=== PATIENT | male | born 1985 | race Caucasian/White ===

== ENCOUNTER → 2016-07-26 | Outpatient (CLI) | payer MEDICARE, OTHER ==
[2016-07-26 14:00] VITALS: BP 103/50
== END | disposition home or self-care (01) ==
LOC: HBOWC 13:52
PROVIDERS: ATTEND Emergency Medicine
DX: L89.323 Pressure ulcer of left buttock, stage 3 (principal); N18.9 Chronic kidney disease, unspecified
CPT/HCPCS: 97597

== ENCOUNTER → 2016-08-02 | Outpatient (CLI) | payer MEDICARE, OTHER ==
[2016-08-02 09:46] VITALS: BP 138/82
== END | disposition home or self-care (01) ==
LOC: HBOWC 08:22
PROVIDERS: ATTEND Emergency Medicine
DX: L89.323 Pressure ulcer of left buttock, stage 3 (principal); N18.9 Chronic kidney disease, unspecified
CPT/HCPCS: 97597

== ENCOUNTER → 2016-08-16 | Outpatient (CLI) | payer MEDICARE, OTHER ==
[2016-08-16 08:24] VITALS: BP 141/95
== END | disposition home or self-care (01) ==
LOC: HBOWC 08:13
PROVIDERS: ATTEND Emergency Medicine
DX: L89.323 Pressure ulcer of left buttock, stage 3 (principal); N18.9 Chronic kidney disease, unspecified; G82.20 Paraplegia, unspecified; E43 Unspecified severe protein-calorie malnutrition; Z68.24 Body mass index [BMI] 24.0-24.9, adult
CPT/HCPCS: 97597

== ENCOUNTER → 2016-08-30 | Outpatient (CLI) | payer MEDICARE, OTHER ==
[2016-08-30 10:53] VITALS: BP 125/68
== END | disposition home or self-care (01) ==
LOC: HBOWC 10:13
PROVIDERS: ATTEND Emergency Medicine
DX: L89.323 Pressure ulcer of left buttock, stage 3 (principal); G82.20 Paraplegia, unspecified; N18.9 Chronic kidney disease, unspecified

== ENCOUNTER → 2016-09-13 | Outpatient (CLI) | payer MEDICARE, OTHER ==
[2016-09-13 10:43] VITALS: BP 140/77
== END | disposition home or self-care (01) ==
LOC: HBOWC 10:07
PROVIDERS: ATTEND Emergency Medicine
DX: L89.323 Pressure ulcer of left buttock, stage 3 (principal); N18.9 Chronic kidney disease, unspecified; G82.21 Paraplegia, complete; Z68.24 Body mass index [BMI] 24.0-24.9, adult; E43 Unspecified severe protein-calorie malnutrition
CPT/HCPCS: 97597; 97598